=== PATIENT | male | born 1985 | race Caucasian/White ===

== ENCOUNTER 2021-11-04 10:42 | Emergency (ER) | payer OTHER ==
[~2021-11-04] VITALS: Ht 180.3 cm; Wt 81.7 kg
[~2021-11-04 10:42] MED LIST: FLEXERIL PO; IBUPROFEN 800800 M1 PO; PERCOCET PO
[2021-11-04] MEDS ORDERED: CEPHALEXIN500 MG PO (12:47)
[2021-11-04 13:00] VITALS: BP 145/100
== END 2021-11-04 13:01 | disposition home or self-care (01) ==
LOC: M.ERS 10:42
DX: L02.211 Cutaneous abscess of abdominal wall (principal); F17.210 Nicotine dependence, cigarettes, uncomplicated

== ENCOUNTER 2021-11-07 16:28 | Emergency (ER) | payer OTHER ==
[~2021-11-07] VITALS: Ht 180.3 cm; Wt 81.7 kg
[~2021-11-07 16:28] MED LIST changes: +CEPHALEXIN500 MG PO
[2021-11-07 17:19] VITALS: BP 161/98
== END 2021-11-07 17:20 | disposition home or self-care (01) ==
LOC: M.ERS 16:28
DX: L02.211 Cutaneous abscess of abdominal wall (principal); F17.210 Nicotine dependence, cigarettes, uncomplicated; Z79.2 Long term (current) use of antibiotics